=== PATIENT | female | born 1965 | race Hispanic/Latino ===

== ENCOUNTER 2018-11-17 11:44 | Outpatient (CLI) | payer SELFPAY | END 2018-11-17 11:45 | disposition home or self-care (01) | LOC: LAB 11:44 | PROVIDERS: ATTEND Internal Medicine Gastroenterology | DX: E11.9 Type 2 diabetes mellitus without complications (principal); R14.0 Abdominal distension (gaseous); I10 Essential (primary) hypertension; E66.9 Obesity, unspecified; E78.00 Pure hypercholesterolemia, unspecified; Z90.710 Acquired absence of both cervix and uterus; Z83.71 Family history of colonic polyps; Z90.49 Acquired absence of other specified parts of digestive tract | CPT/HCPCS: 36415; 83516 ==

== ENCOUNTER 2018-12-13 09:37 | Outpatient (CLI) | payer SELFPAY ==
[2018-12-13 10:11] LABS: Blood Urea Nitrogen 14 mg/dL (7-17)
--- NOTE | 2018-12-14 08:26 | Magnetic Resonance Report ---
MR ABDOMEN WITHOUT CONTRAST MR PELVIS WITH AND WITHOUT CONTRAST HISTORY: Pelvic pain. TECHNIQUE: Multisequence, multiplanar MRI before and after IV gadolinium. COMPARISON: No relevant comparison at this facility. FINDINGS: Mild fatty changes are suspected throughout the liver. No evidence for enlargement, liver mass or surface nodularity. Cholecystectomy changes are suspected. No biliary dilatation. The pancreas is unremarkable. The spleen is normal size and signal measuring 12 cm in length. The kidneys, adrenal glands, renal collecting systems and bladder are unremarkable. Total hysterectomy changes are suspected. No evidence for pelvic cyst or mass. The vaginal cuff is unremarkable. The bowel loops and appendix are within normal limits. The aorta and major branches are widely patent and without abnormality. No evidence for ascites, bulky adenopathy or acute inflammatory changes. The bony structures are intact and demonstrate normal bone marrow signal. 1.8 cm cyst in the right labia is consistent with a Bartholin gland cyst. IMPRESSION: No acute abdominal/pelvic process is identified. No clear explanation for pelvic pain. Hysterectomy. Cholecystectomy. Mild fatty changes throughout the liver. Bartholin gland cyst in the right labia.
== END 2018-12-13 09:38 | disposition home or self-care (01) ==
LOC: MRI 09:37
PROVIDERS: ATTEND Internal Medicine Gastroenterology
DX: K76.0 Fatty (change of) liver, not elsewhere classified (principal); N75.0 Cyst of Bartholin's gland; E11.9 Type 2 diabetes mellitus without complications; I10 Essential (primary) hypertension; E66.9 Obesity, unspecified; E78.00 Pure hypercholesterolemia, unspecified; Z90.710 Acquired absence of both cervix and uterus; Z90.49 Acquired absence of other specified parts of digestive tract
CPT/HCPCS: 36415; 72197; 74183; 82565; 84520; A9577

== ENCOUNTER 2019-09-02 18:51 | Emergency (ER) | payer SELFPAY ==
[2019-09-02 19:31] VITALS: BP 152/90
--- NOTE | 2019-09-02 19:32 | Emergency Department Report ---
Chief Complaint: Medical Clearance Stated Complaint: THROAT/TONGUE HIGGINS Time Seen by Provider: 09/02/19 19:27 - HPI History of Present Illness: pt presents with tongue and throat pain that began three weeks ago states it feels like a burning sensation states she went to see a doctor three weeks ago states he did blood work and said everything was normal did not refer to an ENT doctor she has not been taking anything for her symptoms on exam tongue is normal, no lesions, no ulcerations normal oropharynx tonsils are normal VSS pt is presenting with a non medical emergency at this time, medical screening exam performed will refer pt to a ENT doctor advised pt may use maalox, pepcid, and cepacol over the counter. follow up with an ear, nose and throat doctor in the next 2-3 days. return to the emergency room for any new or worsening symptoms. MSE screening note: Focused history and physical exam performed. ED Disposition for MSE Clinical Impression: Pain in throat, Tongue pain Disposition: MED SCREENING EXAM-LEFT Is pt being admited?: No Does the pt Need Aspirin: No Condition: Stable Additional Instructions: may use maalox, pepcid, and cepacol over the counter. follow up with an ear, nose and throat doctor in the next 2-3 days. return to the emergency room for any new or worsening symptoms. Referrals: CLAYTON CID MD [Staff Physician] - 2-3 Days PANTERA BILL MD [Staff Physician] - 2-3 Days Time of Disposition: 19:30 Print Language: ITALIAN
== END 2019-09-02 19:35 | disposition left against medical advice (07) ==
LOC: ED 18:51
DX: R07.0 Pain in throat (principal); K14.6 Glossodynia